=== PATIENT | female | born 1985 | race Caucasian/White ===

== ENCOUNTER 2021-11-11 17:01 | Outpatient (REF) | payer OTHER, SELFPAY ==
[2021-11-13 23:52] LABS: HPV mRNA E6/E7 rflx Not Detected (Not Detected)
== END 2021-11-11 17:02 | disposition home or self-care (01) ==
LOC: HO.LNP 17:01
PROVIDERS: Visit Provider Internal Medicine
DX: Z12.4 Encounter for screening for malignant neoplasm of cervix (principal); Z11.51 Encounter for screening for human papillomavirus (HPV)
CPT/HCPCS: 87624; 88142

== ENCOUNTER 2022-11-16 13:45 | Outpatient (REF) | payer OTHER, SELFPAY ==
[2022-11-16 17:32] LABS: Alanine Aminotransferase 18 U/L (0-31); Aspartate Amino Transferase 16 U/L (5-31); Cholesterol 188 mg/dL; HDL Cholesterol 40 mg/dL; LDL Cholesterol Calculated 124 mg/dl; Triglycerides 121 mg/dL; Vitamin D 25-OH Total 27.9 ng/mL (>30)
== END 2022-11-16 13:46 | disposition home or self-care (01) ==
LOC: HO.HMGCLDS 13:45
PROVIDERS: PCP Internal Medicine; Visit Provider Internal Medicine
DX: Z00.01 Encounter for general adult medical examination with abnormal findings (principal); F32.A Depression, unspecified; F41.9 Anxiety disorder, unspecified; E66.9 Obesity, unspecified
CPT/HCPCS: 36415; 80061; 82306; 84450; 84460

== ENCOUNTER 2023-08-16 13:14 | Outpatient (AMB) | payer OTHER, SELFPAY ==
--- NOTE | 2023-08-16 13:41 | MHC.PC.OV ---
Vital Signs 08/16/23 13:57 Height 5 ft 4 in Weight 191 lb BMI 32.8 BP 110/74 Blood Pressure Location Rt brachial Position Sitting Pulse 54 Pulse Source Pulse Oximeter Pulse Oximetry (%) 98 Oxygen Delivery Method Room Air Intake Visit Reasons: ENT referral Intake Note: Pt is here today to request ENT referral Allergies No Known Allergies Allergy (Verified 08/16/23 23:41) Medication List - Last Reconciled 08/16/23 by Jessica Hsu MD escitalopram oxalate 20 mg PO DAILY Tobacco use date assessed: 08/16/23 Dental Screening Did you have a dental visit in the last 12 months?: No Was dental information given to patient?: No HPI ENT referral HPI Details 38-year-old lady here today complaining of station of something stuck in left side of her throat, which has been present now for the last several weeks. Patient states that she constantly has that sensation of discomfort on left side of her neck and feels a palpable lump just below her left ear. Will sometimes feel a lump that interferes with her swallowing on the said area. Denies any accompanying sore throat, no cough, no postnasal drainage, no fever or shortness of breath reported. [facility] Medical History Obesity (BMI 35.0-39.9 without comorbidity) Anxiety and depression Surgical History No pertinent past surgical history Family History Father Mental health disorder Paternal Grandfather Mental health disorder Mother Mental health disorder Social History Housing: House Patient Tobacco Use Status: Former Tobacco user e-Cigarette/Vaping Use: Currently Using service: No Current occupational status: employed Cognitive needs: No Hearing needs: No Vision needs: Yes Questionnaire PHQ-9 Over the last 2 weeks, how often have you been bothered by any of the following problems? 1. Little interest or pleasure in doing things: several days 2. Feeling down, depressed, or hopeless: not at all 3. Trouble falling or staying asleep, or sleeping too much: not at all 4. Feeling tired or having little energy: several days 5. Poor appetite or overeating: several days 6. Feeling bad about yourself - or that you are a failure or have let yourself or your family down: several days 7. Trouble concentrating on things, such as reading the newspaper or watching television: not at all 8. Moving or speaking so slowly that other people could have noticed. Or the opposite - being so fidgety or restless that you have been moving around a lot more than usual: not at all 9. Thoughts that you would be better off or of hurting yourself in some way: not at all Total score: 4 Depression Screening Interpretation: Negative 70825 - PHQ-9 Billing: Yes Source: Developed by Drs. Osmar Wyatt, Liliane Aguilar, Kendall Talley and colleagues, with an educational jarocho from [employer]. Thrive Questionnaire Date Thrive assessed: 08/16/23 I am a: Patient What is your living situation today?: I have a steady place to live Within the past 12 months, did the food you bought not last and you didn't have the money to get more?: Never true Within the past 12 months, did you worry whether your food would run out before you got money to buy more?: Never true Do you have trouble paying for medicines?: No Do you have trouble getting transportation to medical appointments?: No Do you have trouble paying your heating and electricity bill?: No Do you have trouble taking care of your child, family member or friend?: No Do you have trouble with day-to-day activities such as bathing, preparing meals, shopping, managing finances, etc.?: No Are you currently unemployed and looking for a job?: No Are you interested in more education?: No AUDIT C Alcohol Use Questionnaire (AUDIT-C) 1. How often do you have a drink containing alcohol?: Never Total Score: 0 HONG-7 AMB Questionnaire HONG-7 Date HONG - 7 assessed: 08/16/23 Feeling nervous, anxious, or on edge: 1 = Several days Not being able to stop or control worryin = Not at all Worrying too much about different things: 0 = Not at all Trouble relaxin = Several days Being so restless that it is hard to sit still: 0 = Not at all Becoming easily annoyed or irritable: 0 = Not at all Feeling afraid as if something awful might happen: 0 = Not at all Total HONG-7 score (0-4 normal; 5-9 mild; 10-14 moderate; 15-21 severe): 2 Source: Developed by Drs. Osmar Wyatt, Liliane Aguilar, Kendall Talley and colleagues, with an educational jarocho from [employer]. HONG-7 Assessment Billing HONG-7 Assessment Tool: HONG-7 Assessment 21886 Review of Systems Const All systems reviewed & are unremarkable except as noted in HPI and below Physical exam (Primary Care) Vital Signs: Last Vital Signs Pulse 54 08/16/23 13:57 BP 110/74 08/16/23 13:57 Pulse Ox 98 08/16/23 13:57 Oxygen Delivery Method Room Air 08/16/23 13:57 BMI result Body Mass Index 32.8 Tobacco/Smoking Status: Tobacco use Status Tobacco use date assessed 08/16/23 08/16/23 13:58 Patient Tobacco Use Status Former Tobacco user 08/16/23 13:41 e-Cigarette/Vaping Use Currently Using 08/16/23 13:41 PHQ-9: PHQ-9 Score PHQ-9: Total score 4 08/16/23 14:26 Depression Screening Interpretation: Negative Thrive Assessment: Date of Thrive Assessment Date Thrive assessed 08/16/23 08/16/23 14:01 Const Other: Alert oriented x3, with no acute cardiorespiratory distress noted, 1 gait HENMT Head: Yes normocephalic Ears: hearing grossly normal bilaterally, external ears normal, TM's normal bilaterally and EAC's normal General nose exam: Normal external nose present and No nasal discharge present Face and sinus: Yes sinuses nontender and Yes face symmetric Mouth: Normal oral and palatal mucosa present, lip normal, tongue normal, oropharynx normal and moist mucous membranes Throat: Yes posterior oropharynx normal, Yes tonsils normal, Yes uvula midline, No postnasal drainage, No uvular edema and No cobblestoning Eyes General: appearance normal, both eyes and all related structures Neck Other: Small palpable nontender in left submandibular mass palpated, thyroid nonpalpable Neck: Yes full ROM, Yes supple and No anterior neck swelling Resp Effort & Inspection: normal respiratory effort and able to speak in complete sentences Auscultation: clear to auscultation bilaterally Cardio Other: S1-S2 present regular rate and rhythm Assessment and Plan Assessment & Plan (1) Mass in neck: Code(s): R22.1 - Localized swelling, mass and lump, neck Plan: Ultrasound of soft tissue of head and neck ordered, ENT consult obtained for further evaluation and management. Orders: Orders US soft tiss head and/or neck Today R22.1 - Localized swelling, mass and lump, neck Referrals Ear/Nose/Throat Referral R22.1 - Localized swelling, mass and lump, neck Coding Level of Care Code Est Pt Level 3 (35779) Diagnoses Mass in neck R22.1 Additional Codes HONG-7 Assessment Billing - HONG-7 Assessment Tool: HONG-7 Assessment 40123 ([id number])
[2023-08-16 13:57] VITALS: BP 110/74; PULSE 54; O2SAT 98; BMI 32.8
== END 2023-08-16 14:54 | disposition home or self-care (01) ==
PROVIDERS: PCP Internal Medicine; Visit Provider Internal Medicine
DX: R22.1 Localized swelling, mass and lump, neck (principal)
CPT/HCPCS: 99213

== ENCOUNTER 2023-09-07 13:54 | Outpatient (REF) | payer OTHER, SELFPAY ==
--- NOTE | ~2023-09-07 | US_ITS ---
EXAMINATION: US SOFT TISSUE HEAD/NECK CLINICAL INFORMATION: Localized swelling, mass and lump, neck. Palpable mass left submandibular area. COMPARISON: None available. TECHNIQUE: Linear transducer palmer-scale and color Doppler examination of the left submandibular neck was performed in the region of a palpable lump as indicated by the patient. Images were supplemented by color Doppler. Comparison views were obtained on the right. FINDINGS: Cervical lymph nodes are identified as follows: Left: Level II: Node #1: 1.9 x 0.6 cm in transverse dimension by 3.3 cm in longitudinal dimension. Fatty hilum is not clearly demonstrated. Level VA: Node #2: 0.7 x 0.4 cm in transverse dimension by 1.0 cm in longitudinal dimension. Normal fatty hilum. Right: Level II: Node #3: 1.8 x 0.7 cm in transverse dimension by 1.8 cm in longitudinal dimension. Fatty hilum is not clearly demonstrated. Level VA: Node #4: 0.8 x 0.5 cm in transverse dimension by 1.0 cm in longitudinal dimension. Fatty hilum is not clearly demonstrated. No keren calcification, cystic change, focus of increased echogenicity or focal vascularity in the keren cortex is identified. US/US soft tiss head and/or neck IMPRESSION: Bilateral cervical lymph nodes, as detailed above.
== END 2023-09-07 13:55 | disposition home or self-care (01) ==
LOC: HO.HMGCX 13:54
PROVIDERS: PCP Internal Medicine; Visit Provider Internal Medicine
DX: R22.1 Localized swelling, mass and lump, neck (principal)
CPT/HCPCS: 76536

== ENCOUNTER 2023-11-17 07:45 | Outpatient (AMB) | payer OTHER, SELFPAY ==
--- NOTE | 2023-11-17 08:03 | A.OFFPC_ITS ---
Vital Signs 11/17/23 08:07 Height 5 ft 4 in Weight 188 lb 4 oz BMI 32.3 BP 114/72 Blood Pressure Location Rt brachial Position Sitting Pulse 62 Pulse Source Pulse Oximeter Pulse Oximetry (%) 98 Oxygen Delivery Method Room Air Intake Visit Reasons: annual PE Intake Note: Pt is here for her Annual PE Is last menstrual period known: Yes Last menstrual period: 11/10/23 Allergies No Known Allergies Allergy (Verified 11/17/23 08:22) Medication List - Last Reconciled 11/17/23 by Jessica Hsu MD escitalopram oxalate 20 mg PO DAILY Tobacco use date assessed: 11/17/23 Dental Screening Dental Screen Date: 11/17/23 Did you have a dental visit in the last 12 months?: No Did you have a dental problem in the last 6 months where you did not have access to dental care?: No Was dental information given to patient?: No HPI annual PE 2 HPI Details 38-year-old lady here today for her phys ical exam. . She has anxiety depression , stable and controlled on escitalopram, she had cervical cancer screening done in 2020, no HPV seen but no aendocervical cells present . Has enlarged lymph nodes in his neck area bilateral, with ultrasound done not clearly identifying a fatty hilum on 3 of the lymph nodes, has an appointment scheduled with ENT for biopsy. [facility] Medical History Obesity (BMI 35.0-39.9 without comorbidity) Anxiety and depression Surgical History No pertinent past surgical history Family History Father Mental health disorder Paternal Grandfather Mental health disorder Mother Mental health disorder Social History Housing: House Patient Tobacco Use Status: Former Tobacco user e-Cigarette/Vaping Use: Currently Using service: No Current occupational status: employed Cognitive needs: No Hearing needs: No Vision needs: Yes Female Reproductive History Menstrual Date of last menstrual period: 11/10/23 Questionnaire PHQ-9 Over the last 2 weeks, how often have you been bothered by any of the following problems? 1. Little interest or pleasure in doing things: several days 2. Feeling down, depressed, or hopeless: not at all 3. Trouble falling or staying asleep, or sleeping too much: several days 4. Feeling tired or having little energy: more than half the days 5. Poor appetite or overeating: not at all 6. Feeling bad about yourself - or that you are a failure or have let yourself or your family down: several days 7. Trouble concentrating on things, such as reading the newspaper or watching television: not at all 8. Moving or speaking so slowly that other people could have noticed. Or the opposite - being so fidgety or restless that you have been moving around a lot more than usual: not at all 9. Thoughts that you would be better off or of hurting yourself in some way: not at all Total score: 5 Depression Screening Interpretation: Negative Depression Screening Done: Yes 03754 - PHQ-9 Billing: Yes Source: Developed by Drs. Osmar Wyatt, Liliane Aguilar, Kendall Talley and colleagues, with an educational jarocho from [employer]. Thrive Questionnaire Date Thrive assessed: 11/17/23 I am a: Patient What is your living situation today?: I have a steady place to live Within the past 12 months, did the food you bought not last and you didn't have the money to get more?: Never true Within the past 12 months, did you worry whether your food would run out before you got money to buy more?: Never true Do you have trouble paying for medicines?: No Do you have trouble getting transportation to medical appointments?: No Do you have trouble paying your heating and electricity bill?: No Do you have trouble taking care of your child, family member or friend?: No Do you have trouble with day-to-day activities such as bathing, preparing meals, shopping, managing finances, etc.?: No Are you currently unemployed and looking for a job?: No Are you interested in more education?: Yes AUDIT C Alcohol Use Questionnaire (AUDIT-C) 1. How often do you have a drink containing alcohol?: Never Total Score: 0 HONG-7 AMB Questionnaire HONG-7 Date HONG - 7 assessed: 12/21/23 Feeling nervous, anxious, or on edge: 1 = Several days Not being able to stop or control worryin = Not at all Worrying too much about different things: 0 = Not at all Trouble relaxin = Not at all Being so restless that it is hard to sit still: 0 = Not at all Becoming easily annoyed or irritable: 0 = Not at all Feeling afraid as if something awful might happen: 0 = Not at all Total HONG-7 score (0-4 normal; 5-9 mild; 10-14 moderate; 15-21 severe): 1 Source: Developed by Drs. Osmar Wyatt, Liliane Aguilar, Kendall Talley and colleagues, with an educational jarocho from [employer]. HONG-7 Assessment Billing HONG-7 Assessment Tool: HONG-7 Assessment 79128 Review of Systems Const Denies body aches, Denies fatigue, Denies fever(s), Denies headache(s), Denies weakness and Reports weight loss Eyes Details: Up-to-date with her eye exam Denies change in vision, Denies eye discharge and Denies itchy eyes ENT Reports Normal hearing present, Denies dizziness, Denies headache(s), Denies nasal congestion, Denies nasal discharge and Denies sore throat Card Denies chest pain, Denies lightheadedness, Denies palpitations and Denies dyspnea Resp Denies chest congestion, Denies cough, Denies dyspnea and Denies wheezing GI Denies abdominal pain, Denies change in bowel habits and Denies heartburn Denies urinary frequency, Denies dysuria and Denies urinary urgency Musc Reports no additional complaints Skin/Breast Denies lesions and Denies rash Neuro Reports Normal hearing present, Denies dizziness, Denies headache(s), Denies Sensory deficit (Neuro) and Denies weakness Psych Reports as per HPI Endo Denies fatigue, Denies polydipsia, Denies polyuria and Denies palpitations Doug/Lymph Denies easy bruising Aller/Immun Denies itchy eyes, Denies seasonal rhinorrhea and Denies wheezing Physical exam (Primary Care) Vital Signs: Last Vital Signs Pulse 62 11/17/23 08:07 BP 114/72 11/17/23 08:07 Pulse Ox 98 11/17/23 08:07 Oxygen Delivery Method Room Air 11/17/23 08:07 BMI result Body Mass Index 32.3 Tobacco/Smoking Status: Tobacco use Status Tobacco use date assessed 11/17/23 11/17/23 08:12 Patient Tobacco Use Status Former Tobacco user 11/17/23 08:03 e-Cigarette/Vaping Use Currently Using 11/17/23 08:03 PHQ-9: PHQ-9 Score PHQ-9: Total score 5 11/17/23 08:41 Depression Screening Interpretation: Negative Thrive Assessment: Date of Thrive Assessment Date Thrive assessed 11/17/23 11/17/23 08:14 Const Other: Alert oriented x3, with no acute cardiorespiratory distress noted, normal gait Orientation/consciousness: patient oriented x3 HENMT Head: Yes normocephalic Ears: hearing grossly normal bilaterally, external ears normal, TM's normal bilaterally and EAC's normal General nose exam: Normal external nose present and No nasal discharge present Face and sinus: Yes face symmetric Mouth: Normal oral and palatal mucosa present, oropharynx normal and moist mucous membranes Throat: Yes posterior oropharynx normal, Yes tonsils normal, Yes uvula midline and No postnasal drainage Eyes General: appearance normal, both eyes and all related structures Neck Other: Small palpable nontender in left submandibular mass palpated, thyroid nonpalpable Neck: Yes full ROM, Yes supple and No anterior neck swelling Resp Effort & Inspection: normal respiratory effort and able to speak in complete sen tences Auscultation: clear to auscultation bilaterally Cardio Other: S1-S2 present regular rate and rhythm GI Palpation (GI): Soft to palpation, nontender, no guarding and no masses General: Yes bladder normal to palpation and Yes no CVA tenderness External Female Exam: normal external appearance and normal appearance of the urethra Speculum Exam - Vagina: normal appearance of the vagina, normal palpation and normal vaginal discharge Speculum Exam - Cervix: normal appearance of the cervix, normal palpation and Cervical os open Bimanual exam- vagina & uterus: normal palpation, bladder normal to palpation and normal palpation Bimanual Exam- Adnexa, other: normal adnexae, no masses, normal and No adnexal tenderness OB/external & speculum: Cervical os open Back/Spine/Pelvis Back: no CVA tenderness Skin General skin exam: no rashes or lesions noted Neuro General: patient oriented x3, gait normal, tone normal, moves all extremities, Normal light touch and pain sensation, no focal motor deficits and CN's II-XI intact bilaterally Cranial nerves: Yes Normal hearing present Sensory Exam: No Sensory deficit (Neuro) Extrem General: Yes full ROM, Yes no joint enlargement, Yes no clubbing, cyanosis or edema, Yes no pedal edema, Yes no calf tenderness and Yes normal gait Psych Appearance: grossly normal and well kempt Mental Status: mental status grossly normal Speech and movement: Normal speech and movement present Affect: normal affect Attitude: cooperative Thought process: Normal thought process present Thought content: Normal thought content present Office Procedures Flu Questionnaire Does the patient have a severe egg allergy?: No Does the patient have severe life threatening allergies?: No Does the patient have a fever or illness today?: No Has the patient ever had Guillain-[place] Syndrome?: No Has the patient ever had any past reaction to a flu shot?: No Immunizations flu vacc [id number] 6mos up(PF) 60 mcg(15 mcgx4)/0.5 mL IM syringe Performing Provider: Jessica Hsu MD Performing Location: [facility] Administered by: Loretta Dougherty CMA on 11/17/23 08:41 Dose Route Admin Location Dispensed Lot Number Expiration Date [employer] 0.5 mL IM Right Deltoid 0.5 mL [id number] 05/27/24 [id number] Dexmo VIS Given Date VIS Provided VIS Publication Date 11/17/23 Single Vaccine 21 Eligibility Eligibility Date Funding Source Not [facility] Eligible 11/17/23 Private Assessment and Plan Assessment & Plan (1) Annual visit for general adult medical examination with abnormal findings: Code(s): Z00.01 - Encounter for general adult medical examination with abnormal findings Plan: Will check appropriate labs. Recommended dental visit every 6 months and regular eye exams, at least every 2 years. Take adequate calcium in diet and vitamin-D 3 at 2000 IU per cap once a day, in addition to weight-bearing exercises to help maintain good muscle tone and weight control. Instructed to do self-breast exam, and recommended to get yearly mammogram, starting at age 40. Has had COVID vaccines but does not want to get a booster, flu vaccine given today, Tdap is up-to-date. Cervical cancer screening done, Pap done and pelvic exam (2) Cervical cancer screening: Code(s): Z12.4 - Encounter for screening for malignant neoplasm of cervix Plan: Pap smear done today, as well as pelvic exam, with no abnormality noted (3) Obesity (BMI 35.0-39.9 without comorbidity): Code(s): E66.9 - Obesity, unspecified Plan: . Recommended focusing on improving your health instead of dieting. : Eat Mediterranean diet, limit foods high in fat, sugar, and calories, eat slowly, pay attention to portion sizes, plan your meals ahead of time, start regular physical activity 150 minutes of moderate intensity exercise or 90 minutes/week of vigorous exercise and increase water intake. (4) Anxiety and depression: Code(s): F41.9 - Anxiety disorder, unspecified; F32.A - Depression, unspecified Plan: Stable and controlled on escitalopram 20 mg taken once a day. Refill sent Orders: Orders Vitamin D 25-OH Total 11/17/23 E66.9 - Obesity, unspecified, F32.A - Depression, unspecified, F41.9 - Anxiety disorder, unspecified, Z00.01 - Encounter for general adult medical examination with abnormal findings Lipid Panel 11/17/23 E66.9 - Obesity, unspecified, F32.A - Depression, unspecified, F41.9 - Anxiety disorder, unspecified, Z00.01 - Encounter for general adult medical examination with abnormal findings Complete Blood Count Auto Diff 11/17/23 E66.9 - Obesity, unspecified, F32.A - Depression, unspecified, F41.9 - Anxiety disorder, unspecified, Z00.01 - Encounter for general adult medical examination with abnormal findings Alanine Aminotransferase 11/17/23 E66.9 - Obesity, unspecified, F32.A - Depression, unspecified, F41.9 - Anxiety disorder, unspecified, Z00.01 - Encounter for general adult medical examination with abnormal findings Influenza [id number] Immunization 11/17/23 Z23 - Encounter for immunization Pap Smear 11/17/23 Z12.4 - Encounter for screening for malignant neoplasm of cervix Basic Metabolic Panel Fasting 11/17/23 E66.9 - Obesity, unspecified, F32.A - Depression, unspecified, F41.9 - Anxiety disorder, unspecified, Z00.01 - Encounter for general adult medical examination with abnormal findings Aspartate Amino Transferase 11/17/23 E66.9 - Obesity, unspecified, F32.A - Depression, unspecified, F41.9 - Anxiety disorder, unspecified, Z00.01 - Enc ounter for general adult medical examination with abnormal findings Medications: Refilled escitalopram oxalate 20 mg PO DAILY 90 tabs 3RF Coding Level of Care Code Est Pt Prev Care 18-39y(53734) Diagnoses Annual visit for general adult medical examination with abnormal findings Z00.01 Cervical cancer screening Z12.4 Obesity (BMI 35.0-39.9 without comorbidity) E66.9 Anxiety and depression F41.9; F32.A Additional Codes HONG-7 Assessment Billing - HONG-7 Assessment Tool: HONG-7 Assessment 27230 ([id number])
[2023-11-17 08:07] VITALS: BP 114/72; PULSE 62; O2SAT 98; BMI 32.3
== END 2023-11-17 08:59 | disposition home or self-care (01) ==
PROVIDERS: Visit Provider Internal Medicine
DX: Z23 Encounter for immunization (principal)
CPT/HCPCS: 90471; 90686; 99395

== ENCOUNTER 2023-11-17 08:51 | Outpatient (REF) | payer OTHER, SELFPAY ==
[2023-11-17 11:29] LABS: MANUAL DIFF FLAG NO
[2023-11-17 12:05] LABS: Basophils Percent Auto 0.6 % (0-2); Eosinophils Absolute Auto 0.2 X10*3/uL (0.0-0.4); Eosinophils Percent Auto 3.5 % (0-4); Hemoglobin 14.3 g/dl (12.0-16.0); Imm Gran Abs Auto 0.02 X10*3/uL (0.00-0.03); Imm Gran Pct Auto 0.3 % (0.0-0.4); Lymphocytes Absolute Auto 1.8 X10*3/uL (1.2-4.9); Mean Corpuscular HGB Conc 33.3 g/dl (31.0-35.0); Mean Corpuscular Hemoglobin 30.4 pg (27.0-33.0); Mean Corpuscular Volume 91.3 fL (80.0-98.0); Mean Platelet Volume 10.3 fL (9.4-12.3); Monocytes Absolute Auto 0.5 X10*3/uL (0.1-1.2); Neutrophils Percent Auto 60.6 % (45-73); Platelet Count 336 X10*3/uL (160-400); Red Blood Count 4.71 X10*6/uL (4.20-5.50); Red Cell Distribution Width 12.4 % (11.0-16.0); White Blood Count 6.6 X10*3/uL (4.8-10.8)
[2023-11-17 12:20] LABS: Alanine Aminotransferase 13 U/L (0-31); Anion Gap 13 (12-20); Aspartate Amino Transferase 13 U/L (5-31); Blood Urea Nitrogen 12 mg/dL (9-16); Calcium 9.4 mg/dL (8.4-10.2); Carbon Dioxide 27 mmol/L (22-29); Chloride 104 mmol/L (96-108); Cholesterol 174 mg/dL (<200); Estimated Glomerular Filt Rate > 60; Glucose Fasting 95 mg/dL (60-99); HDL Cholesterol 42 mg/dL (>40); LDL Cholesterol Calculated 118 mg/dL (<100); Potassium 3.7 mmol/L (3.3-5.1); Sodium 140 mmol/L (135-145); Triglycerides 73 mg/dL (<150)
[2023-11-17 12:27] LABS: Vitamin D 25-OH Total 21.9 ng/mL (>30)
== END 2023-11-17 08:52 | disposition home or self-care (01) ==
LOC: HO.HMGCLDS 08:51
PROVIDERS: PCP Internal Medicine; Visit Provider Internal Medicine
DX: Z00.01 Encounter for general adult medical examination with abnormal findings (principal); E66.9 Obesity, unspecified; F41.9 Anxiety disorder, unspecified; F32.A Depression, unspecified
CPT/HCPCS: 36415; 80048; 80061; 82306; 84450; 84460; 85025

== ENCOUNTER 2023-11-17 12:30 | Outpatient (REF) | payer OTHER, SELFPAY ==
--- NOTE | ~2023-11-17 | US_ITS ---
Ultrasound-guided left cervical lymph node fine-needle aspiration Indication: Bilateral cervical lymphadenopathy Procedure: Informed consent was obtained from the patient prior to the procedure. During this process, the procedure and potential alternatives were explained, along with the intended outcome and benefits. The risks of the procedure, as well as the risks of not doing the procedure, were discussed. The patient was given the opportunity to ask questions regarding the procedure and appeared competent to make medical decisions. A signed consent form which documents this discussion was placed in the medical record. A timeout was performed in the room. The patient was placed in a supine position with the neck extended. The left side of the neck and chest was prepped and draped in routine sterile fashion. 1% lidocaine was used as anesthetic. Under real-time ultrasound guidance, a 25-gauge needle was placed into the left cervical lymph node just anterior to the carotid artery and aspiration was performed. A total of 4 aspirations were performed. The specimens were placed in CytoLyt and and RPMI for flow cytometry. Postprocedure images showed no hematoma. A Band-Aid was applied to the access site. The patient tolerated the procedure well with no immediate complications. Permanent ultrasound images were archived to the procedure. US/US biopsy lymph node Impression: Left thyroid cervical lymph node fine-needle aspiration This procedure was performed by Isael Oconnor PA-C, and directly supervised by Dr. Parikh
[2023-11-17] MEDS: Lidocaine HCl 1 % MPF 5 ML VIAL 10 ML SUBCUT (14:10)
[2023-11-24 07:53] LABS: HPV mRNA E6/E7 rflx Not Detected (Not Detected)
== END 2023-11-17 12:31 | disposition home or self-care (01) ==
LOC: HO.US 12:30
PROVIDERS: Physician Assistant Surgical; PCP Internal Medicine; Visit Provider Otolaryngology
DX: Z12.4 Encounter for screening for malignant neoplasm of cervix (principal); Z11.51 Encounter for screening for human papillomavirus (HPV); R22.1 Localized swelling, mass and lump, neck
CPT/HCPCS: 36415; 38505; 76942; 87624; 88142; 88173; 88184; 88185; 88300; 88305

== ENCOUNTER → 2023-11-17 12:33 | Outpatient (BNV) | payer OTHER, SELFPAY | PROVIDERS: PCP Internal Medicine; Visit Provider Student in an Organized Health Care Education/Training Program | DX: R59.0 Localized enlarged lymph nodes (principal) | CPT/HCPCS: 38505; 76942 ==

== ENCOUNTER 2025-01-15 11:16 | Outpatient (AMB) | payer OTHER, SELFPAY ==
[2025-01-15 11:47] VITALS: BP 124/80; PULSE 49; RESP 16; TEMP 36.7; O2SAT 99; BMI 32.6
--- NOTE | 2025-01-15 11:47 | A.OFFPC_ITS ---
Vital Signs 01/15/25 11:47 Height 5 ft 4 in Weight 190 lb BMI 32.6 BP 124/80 Blood Pressure Location Lt brachial Position Sitting Respiration 16 Pulse 49 L Pulse Source Pulse Oximeter Temp 98.0 F Temp Source Oral Pulse Oximetry (%) 99 Oxygen Delivery Method Room Air Intake Visit Reasons: bilateral hands and arms rash Intake Note: Pt is here today c/o bilateral hands and arms rash Allergies Latex, Natural Rubber Allergy (Intermediate, Verified 01/15/25 12:09) Rash Medication List - Last Reconciled 01/20/25 by Jessica Hsu MD escitalopram oxalate 20 mg PO DAILY hydroxyzine HCl 25 mg PO BEDTIME PRN Tobacco use date assessed: 01/15/25 Dental Screening Dental Screen Date: 01/15/25 Did you have a dental visit in the last 12 months?: No Did you have a dental problem in the last 6 months where you did not have access to dental care?: No Was dental information given to patient?: No HPI bilateral hands and arms rash HPI Details 29-year-old lady here today complaining of pruritic rash which started on her hands lady on dorsal aspect spreading now up her arm. Started after she was using rubber gloves to wash and after she started using her nicotine patch. She has been applying cortisone cream to affected areas which afforded temporary relief. Denies any accompanying shortness of breath, no lightheadedness or difficulty breathing or swallowing [facility] Medical History Obesity (BMI 35.0-39.9 without comorbidity) Anxiety and depression Surgical History No pertinent past surgical history Family History Father Mental health disorder Paternal Grandfather Mental health disorder Mother Mental health disorder Social History Housing: House Patient Tobacco Use Status: Former Tobacco user e-Cigarette/Vaping Use: Currently Using service: No Current occupational status: employed Cognitive needs: No Hearing needs: No Vision needs: Yes Questionnaire PHQ-9 Over the last 2 weeks, how often have you been bothered by any of the following problems? 1. Little interest or pleasure in doing things: not at all 2. Feeling down, depressed, or hopeless: not at all 3. Trouble falling or staying asleep, or sleeping too much: not at all 4. Feeling tired or having little energy: not at all 5. Poor appetite or overeating: several days 6. Feeling bad about yourself - or that you are a failure or have let yourself or your family down: not at all 7. Trouble concentrating on things, such as reading the newspaper or watching television: not at all 8. Moving or speaking so slowly that other people could have noticed. Or the opposite - being so fidgety or restless that you have been moving around a lot more than usual: not at all 9. Thoughts that you would be better off or of hurting yourself in some way: not at all Total score: 1 Depression Screening Interpretation: Positive (Controlled on escitalopram) Depression Screening Follow-up: Existing condition and In treatment Depression Screening Done: Yes 76249 - PHQ-9 Billing: Yes Source: Developed by Drs. Osmar Wyatt, Liliane Aguilar, Kendall Tlaley and colleagues, with an educational jarocho from [employer]. Thrive Questionnaire Date Thrive assessed: 01/15/25 I am a: Patient What is your living situation today?: I have a steady place to live Within the past 12 months, did the food you bought not last and you didn't have the money to get more?: Never true Within the past 12 months, did you worry whether your food would run out before you got money to buy more?: Never true Do you have trouble paying for medicines?: No Do you have trouble getting transportation to medical appointments?: No Do you have trouble paying your heating and electricity bill?: No Do you have trouble taking care of your child, family member or friend?: No Do you have trouble with day-to-day activities such as bathing, preparing meals, shopping, managing finances, etc.?: No Are you currently unemployed and looking for a job?: No Are you interested in more education?: No Please select the resources that you would like help with: None Currently or been in a relationship where the following occur: No concerns reported THRIVE Score: 0 AUDIT C Alcohol Use Questionnaire (AUDIT-C) 1. How often do you have a drink containing alcohol?: Never Total Score: 0 HONG-7 AMB Questionnaire HONG-7 Date HONG - 7 assessed: 01/15/25 Feeling nervous, anxious, or on edge: 0 = Not at all Not being able to stop or control worryin = Not at all Worrying too much about different things: 0 = Not at all Trouble relaxin = Not at all Being so restless that it is hard to sit still: 0 = Not at all Becoming easily annoyed or irritable: 0 = Not at all Feeling afraid as if something awful might happen: 0 = Not at all Total HONG-7 score (0-4 normal; 5-9 mild; 10-14 moderate; 15-21 severe): 0 Source: Developed by Drs. Osmar Wyatt, Liliane Aguilar, Kendall Talley and colleagues, with an educational jarocho from [employer]. HONG-7 Assessment Billing HONG-7 Assessment Tool: HONG-7 Assessment 01331 Review of Systems Const All systems reviewed & are unremarkable except as noted in HPI and below ENT Reports Normal hearing present Neuro Reports Normal hearing present and Denies Sensory deficit (Neuro) Physical exam (Primary Care) Vital Signs: Last Vital Signs Temp 98.0 F 01/15/25 11:47 Pulse 49 L 01/15/25 11:47 Resp 16 01/15/25 11:47 BP 124/80 01/15/25 11:47 Pulse Ox 99 01/15/25 11:47 Oxygen Delivery Method Room Air 01/15/25 11:47 BMI result Body Mass Index 32.6 Tobacco/Smoking Status: Tobacco use Status Tobacco use date assessed 01/15/25 01/15/25 11:51 Patient Tobacco Use Status Former Tobacco user 01/15/25 11:51 e-Cigarette/Vaping Use Currently Using 01/15/25 11:51 PHQ-9: PHQ-9 Score PHQ-9: Total score 5 01/15/25 12:09 Depression Screening Interpretation: Positive (Controlled on escitalopram) Depression Screening Follow-up: Existing condition and In treatment Thrive Assessment: Date of Thrive Assessment Date Thrive assessed 11/17/23 01/15/25 11:51 Currently or been in a relationship where the following occur: No concerns reported Const Other: Alert oriented x3, with no acute cardiorespiratory distress noted, normal gait Orientation/consciousness: patient oriented x3 HENMT Ears: EAC's normal General nose exam: Normal external nose present Face and sinus: Yes face symmetric Mouth: Normal oral and palatal mucosa present and moist mucous membranes Eyes General: appearance normal, both eyes and all related structures Neck Neck: Yes full ROM and Yes supple Resp Effort & Inspection: normal respiratory effort and able to speak in complete sentences Auscultation: clear to auscultation bilaterally Cardio Other: S1-S2 present regular rate and rhythm GI Palpation (GI): Soft to palpation, nontender, no guarding and no masses Skin Other: Erythematous papular on dorsal aspect of both hands and fingers and on forearm as well as on area were nicotine patch was placed on upper arms Neuro General: patient oriented x3, gait normal, tone normal, moves all extremities, Normal light touch and pain sensation, no focal motor deficits and CN's II-XI intact bilaterally Cranial nerves: Yes Normal hearing present Sensory Exam: No Sensory deficit (Neuro) Extrem General: Yes full ROM, Yes no joint enlargement, Yes no clubbing, cyanosis or edema, Yes no pedal edema, Yes no calf tenderness and Yes normal gait Psych Appearance: grossly normal and well kempt Mental Status: mental status grossly normal Speech and movement: Normal speech and movement present Affect: normal affect Attitude: cooperative Thought process: Normal thought process present Thought content: Normal thought content present Coding Level of Care Code Est Pt Level 3 (06561) Diagnoses Allergic contact dermatitis due to adhesives L23.1 Additional Codes PHQ-9 - 57346 - PHQ-9 Billing: Yes ([id number]) HONG-7 Assessment Billing - HONG-7 Assessment Tool: HONG-7 Assessment 13188 ([id number]) Assessment & Plan Assessment & Plan (1) Allergic contact dermatitis due to adhesives: Code(s): L23.1 - Allergic contact dermatitis due to adhesives Plan: Stop using nicotine patch and latex gloves,. Prescription sent for hydroxyzine 25 mg per tablet to take 1/2-1 tablet night as needed for itching. May take [id number] antihistamine like Claritin 10 mg 1 tablet daily. May continue applying cortisone cream to affected area as needed return to clinic if no improvement of symptoms after 3 days Medications: New hydroxyzine HCl 25 mg PO BEDTIME PRN 20 tabs 0RF itching
== END 2025-01-15 12:10 | disposition home or self-care (01) ==
PROVIDERS: PCP Internal Medicine; Visit Provider Internal Medicine
DX: L23.1 Allergic contact dermatitis due to adhesives (principal)

== ENCOUNTER → 2025-01-15 11:16 | Outpatient (BNVA) | payer OTHER, SELFPAY | PROVIDERS: PCP Internal Medicine; Visit Provider Internal Medicine | DX: L23.1 Allergic contact dermatitis due to adhesives (principal) | CPT/HCPCS: 96127 ==

== ENCOUNTER 2025-04-23 12:32 | Outpatient (AMB) | payer OTHER, SELFPAY ==
--- NOTE | 2025-04-23 12:43 | A.OFFPC_ITS ---
Vital Signs 04/23/25 12:47 Height 5 ft 4 in Weight 198 lb 8 oz BMI 34.1 BP 118/64 Blood Pressure Location Lt brachial Position Sitting Respiration 12 Pulse 58 Pulse Source Pulse Oximeter Temp 98.2 F Temp Source Oral Pulse Oximetry (%) 98 Oxygen Delivery Method Room Air Intake Visit Reasons: PE Intake Note: Pt is here today for her PE Allergies Latex, Natural Rubber Allergy (Intermediate, Verified 04/23/25 13:13) Rash Medication List - Last Reconciled 04/23/25 by Jessica Hsu MD escitalopram oxalate 20 mg PO DAILY Tobacco use date assessed: 04/23/25 Dental Screening Dental Screen Date: 04/23/25 Did you have a dental visit in the last 12 months?: No Did you have a dental problem in the last 6 months where you did not have access to dental care?: No Was dental information given to patient?: No HPI PE HPI Details 39-year-old lady with history of anxiety depression currently stable and controlled on escitalopram 20 mg once a day, here today for her physical exam. She has been feeling well, would like to wean off escitalopram, feels well and thinks that she is able to manage her depression without medication. She has been on escitalopram now for more than 5 years. Complains of painful thrombosed hemorrhoids. Has been using cortisone suppositories and cream which affords temporary relief. Denies constipation. Denies blood in stool. Would like referral to have hemorrhoids removed. She is up-to-date with her cervical cancer screening, done in 2022 with benign findings. Due now for her initial screening for breast cancer with mammogram. [facility] Medical History (Updated 04/23/25 @ 13:30 by Jessica Hsu MD) Annual visit for general adult medical examination with abnormal findings Hemorrhoid prolapse History of vitamin D deficiency Obesity (BMI 35.0-39.9 without comorbidity) Anxiety and depression Surgical History No pertinent past surgical history Family History Father Mental health disorder Paternal Grandfather Mental health disorder Mother Mental health disorder Social History Housing: House Patient Tobacco Use Status: Former Tobacco user e-Cigarette/Vaping Use: Currently Using service: No Current occupational status: employed Cognitive needs: No Hearing needs: No Vision needs: Yes Questionnaire PHQ-9 Over the last 2 weeks, how often have you been bothered by any of the following problems? 1. Little interest or pleasure in doing things: not at all 2. Feeling down, depressed, or hopeless: not at all 3. Trouble falling or staying asleep, or sleeping too much: not at all 4. Feeling tired or having little energy: not at all 5. Poor appetite or overeating: several days 6. Feeling bad about yourself - or that you are a failure or have let yourself or your family down: not at all 7. Trouble concentrating on things, such as reading the newspaper or watching television: not at all 8. Moving or speaking so slowly that other people could have noticed. Or the opp osite - being so fidgety or restless that you have been moving around a lot more than usual: not at all 9. Thoughts that you would be better off or of hurting yourself in some way: not at all Total score: 1 Depression Screening Interpretation: Positive (Controlled on escitalopram) Depression Screening Follow-up: Existing condition and In treatment Depression Screening Done: Yes 30945 - PHQ-9 Billing: Yes Source: Developed by Drs. Osmar Wyatt, Liliane Aguilar, Kendall Talley and colleagues, with an educational jarocho from [employer] Thrive Questionnaire Date Thrive assessed: 01/15/25 I am a: Patient What is your living situation today?: I have a steady place to live Within the past 12 months, did the food you bought not last and you didn't have the money to get more?: Never true Within the past 12 months, did you worry whether your food would run out before you got money to buy more?: Never true Do you have trouble paying for medicines?: No Do you have trouble getting transportation to medical appointments?: No Do you have trouble paying your heating and electricity bill?: No Do you have trouble taking care of your child, family member or friend?: No Do you have trouble with day-to-day activities such as bathing, preparing meals, shopping, managing finances, etc.?: No Are you currently unemployed and looking for a job?: No Are you interested in more education?: No Please select the resources that you would like help with: None Currently or been in a relationship where the following occur: No concerns reported THRIVE Score: 0 HONG-7 AMB Questionnaire HONG-7 Date HONG - 7 assessed: 01/15/25 Source: Developed by Drs. Osmar Wyatt, Liliane Aguilar, Kendall Talley and colleagues, with an educational jarocho from [employer] Review of Systems Const Denies body aches, Denies fatigue, Denies fever(s), Denies headache(s) and Denies weakness Eyes Details: Up-to-date with her eye exam Denies change in vision ENT Reports Normal hearing present, Denies dizziness, Denies headache(s), Denies nasal congestion, Denies nasal discharge and Denies sore throat Card Denies chest pain, Denies lightheadedness, Denies palpitations and Denies dyspnea Resp Denies chest congestion, Denies cough, Denies dyspnea and Denies wheezing GI Denies abdominal pain, Denies change in bowel habits and Denies heartburn Denies urinary frequency, Denies dysuria and Denies urinary urgency Musc Reports no additional complaints Skin/Breast Denies lesions and Denies rash Neuro Reports Normal hearing present, Denies dizziness, Denies headache(s), Denies Sensory deficit (Neuro) and Denies weakness Psych Reports as per HPI Endo Denies fatigue, Denies polydipsia, Denies polyuria and Denies palpitations Doug/Lymph Denies easy bruising Aller/Immun Denies seasonal rhinorrhea and Denies wheezing Physical exam (Primary Care) Vital Signs: Last Vital Signs Temp 98.2 F 04/23/25 12:47 Pulse 58 04/23/25 12:47 Resp 12 04/23/25 12:47 BP 118/64 04/23/25 12:47 Pulse Ox 98 04/23/25 12:47 Oxygen Delivery Method Room Air 04/23/25 12:47 BMI result Body Mass Index 34.1 Tobacco/Smoking Status: Tobacco use Status Tobacco use date assessed 04/23/25 04/23/25 13:00 Patient Tobacco Use Status Former Tobacco user 04/23/25 12:44 e-Cigarette/Vaping Use Currently Using 04/23/25 12:44 PHQ-9: PHQ-9 Score PHQ-9: Total score 1 04/24/25 01:05 Depression Screening Interpretation: Positive (Controlled on escitalopram) Depression Screening Follow-up: Existing condition and In treatment Thrive Assessment: Date of Thrive Assessment Date Thrive assessed 01/15/25 04/23/25 12:44 Currently or been in a relationship where the following occur: No concerns reported Advance Care Planning discussion: Completed/Scanned Date of discussion: 04/23/25 Who was present: Patient Forms completed: Health Care Proxy Time spent: 16-45 minutes Actual minutes spent: 2 Const Other: Alert oriented x3, with no acute cardiorespiratory distress noted, normal gait HENMT Ears: EAC's normal General nose exam: Normal external nose present Face and sinus: Yes face symmetric Mouth: Normal oral and palatal mucosa present and moist mucous membranes Eyes General: appearance normal, both eyes and all related structures Neck Neck: Yes full ROM and Yes supple Chest Chest palpation & inspection: normal inspection of the chest Breast/axilla palpation: normal palpation of the breasts Resp Effort & Inspection: normal respiratory effort and able to speak in complete sentences Auscultation: clear to auscultation bilaterally Cardio Other: S1-S2 present regular rate and rhythm GI Palpation (GI): Soft to palpation, nontender, no guarding and no masses General: Yes no CVA tenderness Back/Spine/Pelvis Back: no CVA tenderness and No back tenderness Skin General skin exam: no rashes or lesions noted Neuro General: gait normal, tone normal, moves all extremities, Normal light touch and pain sensation, no focal motor deficits and CN's II-XI intact bilaterally Cranial nerves: Yes Normal hearing present Sensory Exam: No Sensory deficit (Neuro) Extrem General: Yes full ROM, Yes no joint enlargement, Yes no clubbing, cyanosis or edema, Yes no pedal edema, Yes no calf tenderness and Yes normal gait Psych Appearance: grossly normal and well kempt Mental Status: mental status grossly normal Speech and movement: Normal speech and movement present Affect: normal affect Attitude: cooperative Coding Level of Care Code Est Pt Prev Care 40-64y(78636) Diagnoses Fatigue, unspecified type R53.83 Fatigue type: unspecified Hemorrhoid prolapse K64.8 Annual visit for general adult medical examination with abnormal findings Z00.01 Advanced directives, counseling/discussion Z71.89 Anxiety and depression F41.9; F32.A Obesity (BMI 35.0-39.9 without comorbidity) E66.9 History of vitamin D deficiency Z86.39 Additional Codes PHQ-9 - 15515 - PHQ-9 Billing: Yes ([id number]) Vital Signs *Quality* - Advance Care Planning discussion: Completed/Scanned ([id number]) Vital Signs *Quality* - Time spent: 16-45 minutes ([id number]) Assessment & Plan Assessment & Plan (1) Fatigue: Code(s): R53.83 - Other fatigue Qualifiers: Fatigue type: unspecified Qualified Code(s): R53.83 - Other fatigue Plan: Will check TSH and free reflex free T4 and vitamin-D level (2) Hemorrhoid prolapse: Code(s): K64.8 - Other hemorrhoids Category: Medical Plan: Referred to general surgery for further evaluation and possible excision of hemorrhoids (3) Annual visit for general adult medical examination with abnormal findings: Code(s): Z00.01 - Encounter for general adult medical examination with abnormal findings Category: Medical Plan: Reminded to get her fasting labs done, already ordered. Continue with regular dental visit every 6 months and regular eye exams, at least every 2 years. Take adequate calcium in diet and vitamin-D 3 at 2000 IU per cap once a day, in addition to weight-bearing exercises to help maintain good muscle tone and weight control. Instructed to do self-breast exam, and recommended to get yearly mammogram, ordered. Up-to-date with her cervical cancer screening. Declined getting COVID boosters, reminded to get her yearly flu shot (4) Advanced directives, counseling/discussion: Code(s): Z71.89 - Other specified counseling Plan: Initiated the conversation about Advanced Directives. Advanced Directives help patients prepare for current and future decisions about their medical treatment and place of care. Discussed with patient that it is a process where a patients current condition and prognosis are reviewed, their wishes for information regarding their illness are elicited, and likely medical dilemmas are presented and options discussed. Healthcare proxy form completed today. The form can be amended as needed, reviewed yearly and make changes as needed (5) Anxiety and depression: Code(s): F41.9 - Anxiety disorder, unspecified; F32.A - Depression, unspecified Category: Medical Plan: Patient wants to try weaning off escitalopram, advised to taper the medications slowly to avoid any withdrawals (6) Obesity (BMI 35.0-39.9 without comorbidity): Code(s): E66.9 - Obesity, unspecified Category: Medical Plan: Continue with adherence to healthy eating habits and regular exercise at least 30 minutes moderate intensity exercise 3 to 4 times a week. (7) History of vitamin D deficiency: Code(s): Z86.39 - Personal history of other endocrine, nutritional and metabolic disease Category: Medical Plan: Will check vitamin-D level Orders: Orders TSH reflex Free T4 04/23/25 R53.83 - Other fatigue MM tomosynthesis screening BI Today Z12.31 - Encounter for screening mammogram for malignant neoplasm of breast Referrals General Surgery Referral K64.8 - Other hemorrhoids Medications: Refilled escitalopram oxalate 20 mg PO DAILY 90 tabs 3RF
[2025-04-23 12:47] VITALS: BP 118/64; PULSE 58; RESP 12; TEMP 36.8; O2SAT 98; BMI 34.1
== END 2025-04-23 13:35 | disposition home or self-care (01) ==
LOC: HO.HMCC 12:33
PROVIDERS: PCP Internal Medicine; Visit Provider Internal Medicine
DX: R53.83 Other fatigue (principal); K64.8 Other hemorrhoids; Z00.01 Encounter for general adult medical examination with abnormal findings; Z71.89 Other specified counseling; F41.9 Anxiety disorder, unspecified; F32.A Depression, unspecified; E66.9 Obesity, unspecified; Z86.39 Personal history of other endocrine, nutritional and metabolic disease; Z00.00 Encounter for general adult medical examination without abnormal findings

== ENCOUNTER → 2025-04-23 12:32 | Outpatient (BNVA) | payer OTHER, SELFPAY | PROVIDERS: PCP Internal Medicine; Visit Provider Internal Medicine | DX: Z00.01 Encounter for general adult medical examination with abnormal findings (principal); F41.9 Anxiety disorder, unspecified; F32.A Depression, unspecified; K64.5 Perianal venous thrombosis; R53.83 Other fatigue; E66.9 Obesity, unspecified; Z86.39 Personal history of other endocrine, nutritional and metabolic disease; Z68.34 Body mass index [BMI] 34.0-34.9, adult; Z71.89 Other specified counseling | CPT/HCPCS: 96127 ==

== ENCOUNTER 2025-05-13 13:44 | Outpatient (REF) | payer OTHER, SELFPAY | END 2025-05-13 13:45 | disposition home or self-care (01) | LOC: HO.MAMMO 13:44 | PROVIDERS: PCP Internal Medicine; Visit Provider Internal Medicine | DX: Z12.31 Encounter for screening mammogram for malignant neoplasm of breast (principal) | CPT/HCPCS: 77063; 77067 ==

== ENCOUNTER → 2025-05-13 14:15 | Outpatient (BNV) | payer OTHER, SELFPAY | PROVIDERS: PCP Internal Medicine; Visit Provider Internal Medicine | DX: Z12.31 Encounter for screening mammogram for malignant neoplasm of breast (principal) | CPT/HCPCS: 77063; 77067 ==

== ENCOUNTER 2025-05-30 14:36 | Outpatient (AMB) | payer OTHER, SELFPAY ==
--- NOTE | 2025-05-30 14:46 | MHC.OFFVIS ---
Vital Signs 05/30/25 14:47 Height 5 ft 4 in Weight 185 lb BMI 31.8 BP 130/63 Blood Pressure Location Rt brachial Position Sitting Pulse 57 Intake Visit Reasons: hemorrhoids Intake Note: Patient referred by pcp Dr. Hsu for thrombosed hemorrhoid. Patient c/o: reports hemorrhoid is controlled. Bleeding, painful when it flares. 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 She says she has had hemorrhoids since her 13 years ago. She says that she had minimal symptoms over the years. However, the past few months, she describes worsening symptoms with pain and swelling. She says that she had a particularly bad episode last month with pain and swelling of her hemorrhoids which lasted for about 2 weeks. She denies any problems with constipation She says she wants her hemorrhoids removed because of worsening problems. [facility] Medical History (Updated 05/30/25 @ 15:17 by Max Andino MD) Hemorrhoids with complication Annual visit for general adult medical examination with abnormal findings Hemorrhoid prolapse History of vitamin D deficiency Obesity (BMI 35.0-39.9 without comorbidity) Anxiety and depression Surgical History No pertinent past surgical history Family History Father Mental health disorder Paternal Grandfather Mental health disorder Mother Mental health disorder Social History Housing: House Patient Tobacco Use Status: Former Tobacco user e-Cigarette/Vaping Use: Currently Using service: No Current occupational status: employed Cognitive needs: No Hearing needs: No Vision needs: Yes Review of Systems Const Denies chills and Denies fever(s) Card Denies chest pain, Denies dyspnea and Denies dyspnea on exertion Resp Denies cough, Denies dyspnea and Denies dyspnea on exertion GI Denies hematochezia and Denies change in bowel habits Denies hematuria Musc Denies back pain and Denies limited range of motion Neuro Denies focal weakness and Denies convulsions Psych Denies depression and Denies mood swings Physical Exam Vital Signs: Last Vital Signs Pulse 57 05/30/25 14:47 BP 130/63 05/30/25 14:47 BMI result Body Mass Index 31.8 Const General: comfortable and no acute distress Orientation/consciousness: patient oriented x3 Neck Neck: Yes no lymphadenopathy Resp Auscultation: clear to auscultation bilaterally Cardio Rhythm: regular rhythm GI Other: Rectal exam shows large external hemorrhoids, left and right side Palpation (GI): Soft to palpation, nontender and no guarding Neuro General: patient oriented x3 Office Procedures Anoscopy She was in kneeling damien-knife position. The anoscope was gently inserted. A full examination of the anal canal was done. She did have large mixed internal hemorrhoidal columns on both the left and right side. These were non thrombosed. There were no other lesions. There were no fissure ulceration. There was no induration on digital exam. There was no bleeding. [id number] Assessment & Plan Assessment & Plan (1) Hemorrhoids with complication: Code(s): K64.8 - Other hemorrhoids Category: Medical Plan: She has large internal and external hemorrhoidal columns. She says that her symptoms have been worsening, with frequent pain and swelling. She wants to proceed with a hemorrhoidectomy. A I had a long discussion with her about the technique of hemorrhoidectomy. I explained the risks including but not limited to bleeding, infections, postop pain, sphincter dysfunction as well as the benefits and alternatives. I reviewed with her what to expect postoperatively She says she understands and wants to proceed. Coding Level of Care Code New Pt Level 3 (48047) Diagnoses Hemorrhoids with complication K64.8 CPT Codes Details - CPT: 80676-[id number] ([id number])
[2025-05-30 14:47] VITALS: BP 130/63; PULSE 57; BMI 31.8
== END 2025-05-30 15:26 | disposition home or self-care (01) ==
LOC: HO.HGS 14:36
PROVIDERS: PCP Internal Medicine; Visit Provider Surgery
DX: K64.8 Other hemorrhoids (principal)
CPT/HCPCS: 46600; 99203

== ENCOUNTER → 2025-05-30 14:36 | Outpatient (BNVA) | payer OTHER, SELFPAY | PROVIDERS: PCP Internal Medicine; Visit Provider Surgery | DX: K64.8 Other hemorrhoids (principal) | CPT/HCPCS: 46600 ==

== ENCOUNTER 2025-08-03 07:38 | Outpatient (REF) | payer OTHER, SELFPAY ==
[2025-08-03 11:49] LABS: Alanine Aminotransferase 18 U/L (0-31); Aspartate Amino Transferase 22 U/L (5-31); Cholesterol 165 mg/dL (<200); HDL Cholesterol 43 mg/dL (>40); Triglycerides 46 mg/dL (<150)
== END 2025-08-03 07:39 | disposition home or self-care (01) ==
LOC: HO.HMGCLDS 07:38
PROVIDERS: PCP Internal Medicine; Visit Provider Internal Medicine
DX: R53.83 Other fatigue (principal); E66.9 Obesity, unspecified; F41.9 Anxiety disorder, unspecified; F32.A Depression, unspecified; Z86.39 Personal history of other endocrine, nutritional and metabolic disease
CPT/HCPCS: 36415; 80061; 82306; 82947; 84443; 84450; 84460